=== PATIENT | male | born 1955 | race African-American/Black ===

== ENCOUNTER 2016-05-03 15:59 | Inpatient (IN) ==
[2016-05-03] MEDS ORDERED: *HR* OxyCODONE Immed Rel 5 MG TABLET PO PRN (18:04)
[2016-05-03] MEDS ORDERED: *HR* Morphine 2 MG/ML SYRINGE IVP PRN (18:04)
[2016-05-03] MEDS ORDERED: Ondansetron 4 MG/2 ML VIAL IVP PRN (18:04)
[2016-05-03 18:50] LABS: INR 1.1; Prothrombin Time 12.1 Seconds (9.4-12.1)
[2016-05-03 18:52] LABS: BUN/Creatinine Ratio 13 (6-26); Blood Urea Nitrogen 13 mg/dL (8-26); Calcium 9.3 mg/dL (8.6-10.8); Carbon Dioxide 25 mEq/L (19-29); Chloride 110 mEq/L (98-109); Glucose 87 mg/dL (70-99); Osmolality,Calculated 295 (280-300); Potassium 4.2 mEq/L (3.5-4.5); Sodium 143 mEq/L (136-145); eGFR For African Americans > 60 (> 60); eGFR For Non-African Americans > 60 (> 60)
[2016-05-03 18:55] LABS: Basophils % 0.3 %; Eosinophils # 0.3 K/mcL (0.0-0.6); Hematocrit 35.8 % (37.5-50.1); Hemoglobin 12.1 g/dL (12.9-16.9); Immature Granulocytes % 0.1 % (0-4); Lymphocytes # 1.8 K/mcL (0.6-4.6); Lymphocytes % 26.5 %; Mean Corpuscular HGB Conc 33.8 g/dL (31.6-35.5); Mean Corpuscular Hemoglobin 28.5 pg (28.0-33.3); Mean Corpuscular Volume 84.4 fL (83.0-100.0); Mean Platelet Volume 10.9 fL (9.4-12.4); Monocytes # 0.5 K/mcL (0.0-1.3); Monocytes % 7.2 %; Neutrophils # 4.2 K/mcL (1.6-8.9); Platelet Count 236 K/mcL (140-400); Red Blood Count 4.24 M/mcL (4.19-5.50); Red Cell Distribution Width 14.2 % (11.5-14.5); Segmented Neutrophils % 61.9 %
[2016-05-03] MEDS: *HR* OxyCODONE Immed Rel 5 MG TABLET PO PRN (21:26)
--- NOTE | 2016-05-03 21:38 | Internal Medicine Consult Note ---
Date of Encounter: 05/03/16 Time of Encounter: 22:30 - Assessment and Plan (1) Bronchitis Current Visit: Yes Status: Acute Assessment and plan: Will treat with prednisone, levofloxacin, duonebs. He is at risk of post op complications and pneumonia. Hospitalist team to follow in the post operative period. (2) Seizure disorder Current Visit: Yes Status: Chronic Assessment and plan: Continue with Keppra. Seizure precautions. (3) Abnormal involuntary movements Current Visit: Yes Status: Chronic Assessment and plan: Pt may benifit from Neurology consultation as inpatient or out patient. (4) Nicotine dependence Current Visit: Yes Status: Chronic Assessment and plan: Will start nicotine patch. Start incentive spirometer in the pre-operative period Qualifiers: Qualified Code(s): F17.219 - Nicotine dependence, cigarettes, with unspecified nicotine-induced disorders (5) Cervical myelopathy Current Visit: Yes Status: Chronic Assessment and plan: Management per orthopedic team Internal Medicine - CN: HPI - Data of Consult Patient: new to practice Consult date: 05/03/16 Requesting Physician: Robert Rodríguez Jr MD - Consult Narrative Reason for consult: Presurgical evaluation History of present illness: Mr. Perkins is a 60 year old male With past medical history significant for seizure disorder, severe C3-C4 spinal canal stenosis with focal myelomalacia and cervical spinal canal stenosis. He is expected to go for surgery on . Hospitalist team is consulted for presurgical evaluation. Patient denies chest pain at rest or on exertion. He denies a significant shortness of breath. He has cough with some elevation expectoration. No fever or chills. He denies abdominal pain, dysuria, hematuria, bowel problems. He reports involuntary jerking movements, and movements while sleeping which caused him injuries. His activities are limited due to these involuntary movements. He can not drive the car or go out due to these movements. He has pain in the right upper extremity for long time, and now has pain in the left upper extremity due to biceps injury. Review of systems: 10 point review of systems done and is negative except for the above mentioned. Family Hx: reviewed and not pertinent to current admission Past Med Surg Social Fam HX - Past Medical History Medical history: no medical history, seizures Psychiatric history: anxiety, depression - Social History Smoking Status: Current every day smoker Smokeless Tobacco Status: No Alcohol use: none Drug use: none Internal Medicine - CN: Meds LevETIRAcetam [Levetiracetam] 500 mg PO BID 05/03/16 [History] Allergies No Known Allergies Allergy (Verified 05/03/16 17:54) Internal Medicine - CN: Exam - Constitutional Vitals: Temp Pulse Resp BP Pulse Ox 98.0 F 56 17 131/71 98 05/03/16 20:00 05/03/16 20:00 05/03/16 20:00 05/03/16 20:00 05/03/16 20:00 Exam: General: Not in acute distress at the time of my evaluation HEENT: Oral mucosa is moist. No conjunctival palor or scleral icterus Neck: No obvious neck swellings Lungs: Clear to auscultation Cardiac: Regular rate and rhythm. No significant murmurs Abdomen: Soft, non tender. Bowel sounds present Neurological: Alert and oriented. No gross localizing motor deficits Psych: Not aggressive or agitated Extremities: no significant leg edema Skin: No generalized rash Internal Medicine - CN: Reslt - Labs CBC & Chem 7: 05/03/16 18:23 05/03/16 18:23 Labs: Short CBC 05/03/16 Range/Units 18:23 WBC 6.8 (4.3-11.1) K/mcL Hgb 12.1 L (12.9-16.9) g/dL Hct 35.8 L (37.5-50.1) % Plt Count 236 (140-400) K/mcL Neutrophils # 4.2 (1.6-8.9) K/mcL BMP 05/03/16 18:23 Sodium 143 Potassium 4.2 Chloride 110 H Carbon Dioxide 25 BUN 13 Creatinine 1.03 Glucose 87 Calcium 9.3 - ABG Interpretation ABG results: PT/INR, D-dimer PT 12.1 Seconds (9.4-12.1) 05/03/16 18:23 - EKG Data -: EKG Interpreted by Myself EKG shows normal: sinus rhythm - Impressions Impressions Cervical Spine X-Ray 05/03/16 18:04 IMPRESSION: Degenerative disc and joint disease mid and lower cervical spine. No acute process seen. D/ / 05/03/2016 19:48:35 Stevie Vasquez MD / mary Interpreting Provider: Stevie Vasquez MD Chest X-Ray 05/03/16 18:04 IMPRESSION: No acute cardiopulmonary disease. D/ / 05/03/2016 19:13:20 Stevie Vasquez MD / mary Interpreting Provider: Stevie Vasquez MD Consult Discharge Plan - Plan [facility] Care Provider[facility] -
[2016-05-03] MEDS ORDERED: predniSONE 20 MG TABLET PO SCH (22:45)
[2016-05-03] MEDS: levETIRAcetam 250 MG TABLET PO SCH (23:36)
[2016-05-03] MEDS: levoFLOXacin 500 MG TABLET PO SCH (23:36)
[2016-05-04 00:22] LABS: Bilirubin,Urine Negative (Negative); Blood,Urine Negative (Negative); Clarity,Urine Clear (Clear); Color,Urine Yellow (Yellow); Glucose,Urine (UA) Normal (Normal); Ketones,Urine Negative (Negative); Leukocyte Esterase,Urine Negative (Negative); Nitrite,Urine Negative (Negative); Protein,Urine Trace mg/dL (Neg-Trace); Specific Gravity,Urine 1.016 (1.010-1.025); Urobilinogen,Urine Normal (Normal)
[2016-05-04 00:29] LABS: Bacteria,Urine None Seen per hpf (None-Few); Hyaline Casts,Urine None Seen per lpf (None-Few); RBC,Urine 0-3 per hpf (0-3); Squamous Epithelial Cell,Urine Moderate per lpf (None-Few); WBC,Urine 0-3 per hpf (0-3)
[2016-05-04] MEDS: Ipratropium/Albuterol Neb 3 ML IH SCH ×5 (05:20→21:46)
--- NOTE | 2016-05-04 07:39 | Spine - History & Physical Rep ---
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 On examination he has a somewhat spastic gait pattern which is mildly unstable we will. He has a positive Sivan sign. He has a positive inverted radial reflex. He has 3 beats of clonus. He has decreased sensation to light touch in the bilateral distal upper extremities. He fires upper and lower extremity motor groups with good strength. Lungs are clear, cardiovascular regular rate and rhythm, abdominal soft and nontender. MRI of the cervical spine dated 03/25/2016 reveals severe stenosis in part secondary to a large posterior disc extrusion that flattens the spinal cord and results in myelomalacia at C3-4. The stenosis extends posterior to the C4 vertebral body. There is moderate stenosis at the C4-5 level. Impression: 1) Cervical cord compression 2) Cervical myelopathy 3) Cervical cord myelomalacia 4) Cervical stenosis Plan: We will admit for definitive management in the form of a cervical decompression and fusion due to his worsening neurologic and functional status.. This will be in the form of a corpectomy C4, cervical fusion C3-C5. We will obtain a hospitalist consult for medical optimization and clearance measures. Patient is amenable to the plan and would like to proceed. (2) Cervical spinal cord compression Current visit: Yes Status: Chronic History of Present Illness Chief complaint: Difficulty walking, numbness in hands, clumsiness HPI: Mr. Perkins is a 60 year old male who complains of a several week history of worsening paresthesias in the upper extremities, gait instability, difficulty with fine motor movements of the upper extremities and dexterity, and radicular symptoms in the upper extremities. He apparently was supposed to have cervical decompression and fusion surgery in [place] a year ago but had delays in preoperative radiation and follow-up. He notes a significant decline in function over the past several months. Recent MRI of the cervical spine field spinal cord compression. Due to his declining neurological status he is admitted for definitive management. Past Med Surg Social Fam HX - Past Medical History Medical history: no medical history, seizures Psychiatric history: anxiety, depression - Social History Smoking Status: Current every day smoker Smokeless Tobacco Status: No Alcohol use: none Drug use: none Medications and Allergies LevETIRAcetam [Levetiracetam] 500 mg PO BID 05/03/16 [History] Allergies No Known Allergies Allergy (Verified 05/03/16 17:54) Results - Labs Result Diagrams: 05/03/16 18:23 05/03/16 18:23 Labs: Abnormal lab results Hgb 12.1 g/dL (12.9-16.9) L 05/03/16 18:23 Hct 35.8 % (37.5-50.1) L 05/03/16 18:23 Chloride 110 mEq/L (98-109) H 05/03/16 18:23 Ur Squamous Epith Cells Moderate per lpf (None-Few) H 05/03/16 00:08 H & H 05/03/16 Range/Units 18:23 Hgb 12.1 L (12.9-16.9) g/dL Hct 35.8 L (37.5-50.1) % All other labs normal. - VTE Documentation of Mechanical Device: Intermittent pneumatic compression device
[2016-05-04] MEDS ORDERED: Nicotine 14 MG PATCH.TD24 TD SCH (09:00)
[2016-05-04] MEDS: levETIRAcetam 250 MG TABLET PO SCH ×2 (09:46→21:29)
[2016-05-04] MEDS ORDERED: predniSONE 20 MG TABLET PO SCH (09:58)
--- NOTE | 2016-05-04 09:59 | Event Note ---
Date of Encounter: 05/04/16 Time of Encounter: 09:52 patient seen as f/u consult for pre op risk assesment. With past medical history significant for seizure disorder, severe C3-C4 spinal canal stenosis with focal myelomalacia and cervical spinal canal stenosis. He is expected to go for surgery on 05/05/16. this morning, he denies any complains, reports that his cough is better, CXR was done that shows no signs of pneumonia. he was started on levoflox, prednisone for acute bronchitis clinically better, can decrease steroids to 10 mg daily and stop after 5 days. can continue levofloxacin for 4 more days and be stopped. no fever or leucocytosis. hemodynamically stable. will order EKG For pre -op eval. early ambulation as able post sx, incentive spirometry and DVT rophylaxis. patient is low C-P risk for the proposed procedure.
[2016-05-04] MEDS: *HR* OxyCODONE Immed Rel 5 MG TABLET PO PRN ×2 (11:27→16:32)
--- NOTE | 2016-05-04 16:28 | Electrocardiograph Report ---
[address] [address] Test Date: 2016-05-03 Pat Name: Bradley Perkins Department: 114 Room: [facility] Gender: M Bushler: : 1955 Requested By: Robert Rodríguez Order Number: [id number] Reading MD: Mayo Phipps Measurements Intervals [place] Rate: 59 P: 47 OR: 159 QRS: 28 QRSD: 101 T: 7 QT: 393 QTc: 392 Interpretive Statements SINUS BRADYCARDIA ST ELEVATION, PROBABLY EARLY REPOLARIZATION Electronically Signed On 05-04-2016 16:27:14 EST by Mayo Phipps
--- NOTE | 2016-05-04 17:22 | Electrocardiograph Report ---
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
--- NOTE | 2016-05-04 20:34 | Anesthesia Evaluation PreOp ---
Date of Encounter: 05/04/16 Time of Encounter: 20:31 - Past History Planned Operation: C3-5 fusion, C4 corpectomy Cardiac History: Denies any Significant Hx Pulmonary History: Smoker (<1ppd x 40yrs), Other (Bronchitis noted this admission currently tx w/Prednisone, Levaquin, DuoNebs) FACETOR History: Seizures (maintained on Kepra. POORLY CONTROLLED - reports 3-4 seizures/week. [facility] - but is unclear on follow-up. Pt reports witnessed jerking/clonic movments during his sleep by his sleeping partner. OR if alone, awakens very sore and bruised.), Other (Cervical Myelomalacia w/ unstable, spastic gait, 3beat clonus and weakness/decreased sensation to light touch (numbness) B-distal UE (hands). Anxiety/Depression) Other Medical History: Denies Any Significant HX Anesthesia History: No Prior Anesthetic Complications, Past Anesthesia (Hand surgery, Knee scope) Alcohol Use: none Drug use: none Medications and Allergies LevETIRAcetam [Levetiracetam] 500 mg PO BID 05/03/16 [History] Allergies No Known Allergies Allergy (Verified 05/03/16 17:54) - Meds/Allergy Pre-op Review Medications Reviewed: Yes Allergies Reviewed: Yes Beta Blockers on Current Med List: No Anesthesia Results - Labs 05/03/16 18:23 05/03/16 18:23 Laboratory Tests 05/03/16 05/03/16 18:23 18:23 PT 12.1 INR 1.1 APTT 36.0 Est GFR (Non-Af Amer) > 60 Laboratory Results Impressions Cervical Spine X-Ray 05/03/16 18:04 IMPRESSION: Degenerative disc and joint disease mid and lower cervical spine. No acute process seen. D/ / 05/03/2016 19:48:35 Stevie Vasquez MD / mary Interpreting Provider: Stevie Vasquez MD Chest X-Ray 05/03/16 18:04 IMPRESSION: No acute cardiopulmonary disease. D/ / 05/03/2016 19:13:20 Stevie Vasquez MD / mary Interpreting Provider: Stevie Vasquez MD - Imaging EKG: image reviewed ([05/03/16] 61bpm SR, ST elevation likely early repolarization) Anesthesia Exam Vital Signs Temp Pulse Resp BP Pulse Ox 05/04/16 16:30 62 05/04/16 14:49 99.1 F 57 18 130/71 98 05/04/16 11:15 98.3 F 61 18 124/72 97 05/04/16 10:30 20 97 05/04/16 06:52 98.9 F 74 18 122/65 99 05/04/16 03:58 98.1 F 60 16 133/68 98 05/03/16 23:59 98.4 F 60 15 135/66 98 Intake and Output 05/04/16 05/04/16 05/04/16 07:59 15:59 23:59 Intake Total 240 / 240 Balance 240 / 240 Intake: Oral 240 / 240 Other: Meal Lunch Percent of Meal Consumed 50% # Voids 1 1 Height: 5'10" Weight: 160# BMI = 23 - HEENT Pupil (Motor): Pupils equal, EOMI Mallampati: II Teeth: Missing, Poor dentition Oral Opening: Greater than 3 - FACETOR LOC: Oriented FACETOR Motor: Normal Face, 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 Katharina Martin MD
[2016-05-04] MEDS: levoFLOXacin 500 MG TABLET PO SCH (21:28)
[2016-05-04] MEDS ORDERED: *HR* Promethazine 25 MG/ML VIAL IVP PRN (21:48)
[2016-05-05] MEDS: Ipratropium/Albuterol Neb 3 ML IH SCH ×4 (04:38→22:41)
[2016-05-05] MEDS ORDERED: *HR* Phenylephrine 10 MG/ML VIAL ONE (06:45)
[2016-05-05] MEDS ORDERED: Dexamethasone 4 MG/ML VIAL ONE (06:45)
[2016-05-05] MEDS ORDERED: *HR* Succinylcholine 200 MG/10 ML VIAL IVP ONE (06:45)
[2016-05-05] MEDS ORDERED: Ondansetron 4 MG/2 ML VIAL ONE ×2 (06:45→11:31)
[2016-05-05] MEDS ORDERED: Lidocaine -MPF 2% 2 ML VIAL ONE ×2 (06:45→07:15)
[2016-05-05] MEDS ORDERED: Lidocaine -MPF 4% 5 ML AMPUL ONE (06:45)
[2016-05-05] MEDS ORDERED: *HR* Rocuronium Bromide 50 MG/5 ML VIAL ONE (06:45)
[2016-05-05] MEDS ORDERED: *HR* Remifentanil 1 MG VIAL IVP ONE ×3 (06:46→10:38)
[2016-05-05] MEDS ORDERED: *HR* FentaNYL (PF) 100 MCG/2 ML VIAL ONE (06:46)
[2016-05-05] MEDS ORDERED: *HR* Midazolam HCl 2 MG/2 ML VIAL ONE ×2 (06:47→11:56)
[2016-05-05] MEDS ORDERED: *HR* Propofol 200 MG/20 ML VIAL IVP ONE (06:47)
[2016-05-05] MEDS ORDERED: ceFAZolin 2,000 MG in D5% in Water (Mini-Bag+) 100 ML IVPB ONE (07:00)
[2016-05-05] MEDS ORDERED: Heparin 1,000 UNITS/500 mL NS 500 ML ONE (07:14)
[2016-05-05] MEDS ORDERED: *HR* Midazolam HCl 5 MG/5 ML VIAL IVP ONE (08:00)
[2016-05-05] MEDS ORDERED: *HR* Midazolam HCl 2 MG/2 ML VIAL IVP PRN (09:09)
[2016-05-05] MEDS ORDERED: *HR* HYDROmorphone 2 MG/ML SYRINGE ONE ×2 (09:16→11:58)
--- NOTE | 2016-05-05 11:42 | Orthopedic Operative Note ---
Date of procedure: 05/05/16 Pre-op diagnosis: Spinal cord compression, cervical myelopathy, myelomalacia Post-op diagnosis: same Operation/Findings: Corpectomy C4, Anterior cervical fusion C3-C5:The patient was brought to the operating room and placed supine on the operating room table. Successful general endotracheal anesthesia intubation was performed. Neurophysiologic monitoring personnel placed leads on the upper and lower extremities as well as the cranium for EMG monitoring purposes. Appropriate baseline potentials were noted by the neurophysiologic monitoring staff. Vazquez catheter was placed prior to positioning. Compression boots and packings were placed for deep vein thrombosis prophylaxis. Padding was also placed all bony prominences including the ulnar nerve near the medial epicondyles of the elbows were appropriately padded. Mild traction was placed on the bilateral shoulders and taped into place. Preoperative antibiotics were administered. The area from the mandible bilaterally to the upper thoraces was prepped and draped in the usual sterile fashion. An oblique incision was made at the level of the cricoid cartilage which is approximately 4cm in length and extended from the midline of the cervical spine laterally towards the sternocleidomastoid muscle on the left. The incision was approximately 1 cm medial and parallel to the left sternocleidomastoid muscle. We then performed standard medial approach to the carotid sheath. Sponges were used to tease the fascial medial to the sternocleidomastoid muscle while carefully controlling and palpating the carotid artery. Using careful dissection we were able to get to the level of the anterior vertebral bodies and longus coli muscles. The spinal needle was placed at the appropriate C4-5 level, and intraoperative radiograph was obtained which was a cervical spine lateral radiograph. The needle and radiograph confirmed we were at the correct operative level. We further exposed this C4-5 level by using Bovie cautery under the medial edge of the longus colli muscles to allow them to be retracted approximately 2 mm laterally on each side. An 11 blade was used to perform anterior discectomy at the appropriate C4-5 level after an initial annulotomy of the anterior longitudinal ligament and annulus was performed. Further disc material was removed with pituitary Rongeurs. Subsequently, Synthes pins were placed at the C4 and C5 vertebral bodies respectively to provide distraction. We then used a Trimline cervical retractor which was placed in both medial and lateral as well as inferior superior direction to allow full visualization of the appropriate C4-5 disc and C4 and C5 vertebral bodies. The Leica microscope was brought to the field and the remainder of the procedure was performed under the guidance of this microscope. Using pituitary rongeurs and small curettes, various micro- instruments, a full discectomy was performed at the appropriate C4-5 level. The posterior longitudinal ligament was encountered and appeared partially calcified. A portion of this ligament was removed. After complete and thorough discectomy and removal of spondylitic material was performed the endplates of the C4 and C5 vertebral bodies were prepared with a bur until allow bleeding of cancellous bone. We then turned our attention to the C3-4 level where a similar series of procedures was performed including discectomy, removal of spondylitic material, end plate preparation. This point, the C4-5 and C3-4 disks spaces had been fully decompressed the posterior longitudinal ligament. We then removed intervening C4 vertebral body using Rongeurs. This bone was saved for later use. We decompressed posterior to the C4 vertebral body and remove part of the posterior longitudinal ligament. At this stage the area inferior to the C3 vertebral body and superior to be C5 vertebral body was fully decompressed. This area was measured with calipers. An appropriate sized expandable cage ( [employer]) was selected. With the aid of fluoroscopy, the cage was placed in the space between the C3 and C5 vertebral bodies. We packed the expandable cage with autograft bone as well as cancellus chips and demineralized bone matrix. A cervical plate was then placed on the anterior aspect of the C3, C4, and C5 vertebral bodies. The plate was placed in the midline position after drilling four 13 mm self tapping screws and inserting them. They were locked in place using standard Venture plate maneuvers. At this point a lateral radiograph of the cervical spine was obtained and showed satisfactory position of the expandable cage and plate. The wound was copiously irrigated and bleeders encountered were cauterized using Bovie cautery. Platysma was closed with interrupted 2-0 Vicryl sutures. Running 3-0 Monocryl suture was used for skin closure. Sterile dressing was placed over the neck wound. A cervical collar was placed. The patient was transferred to a hospital bed and extubated. The patient was noted to be fully motor and sensory intact in the recovery room at the end of the procedure. The medications. All sponge instrument and needle counts were correct at the end of the procedure. Anesthesia: GETA Surgeon: Robert Rodríguez Jr Estimated blood loss (cc): 75 Condition: stable Disposition: PACU
[2016-05-05] MEDS ORDERED: *HR* HYDROmorphone (PF) 1 MG/ML SYRINGE IVP PRN (11:57)
[2016-05-05] MEDS ORDERED: *HR* Promethazine 25 MG/ML VIAL IVP PRN ×2 (11:57→13:22)
--- NOTE | 2016-05-05 12:49 | Anesthesia Evaluation Post Op ---
Date of Encounter: 05/05/16 Time of Encounter: 12:48 - Vital Signs Vital Signs: Last Vital Signs Temp 97.6 F 05/05/16 12:30 Pulse 69 05/05/16 12:40 Resp 14 05/05/16 12:40 BP 153/88 05/05/16 12:40 Pulse Ox 95 05/05/16 12:40 - Lungs Lungs: Clear Ascult./Percussion - Airway Airway: Non-obstructed - Cardiovascular Regular Rate - Mental Status Mental Status: Alert & Oriented, Answers Appropriately - Pain Pain Scale: 5 - Nausea Vomiting Nausea Vomiting: Not Present - Hydration Hydration: NPO - Discharge PostOp Status: Transfer Patient to floor
[2016-05-05] MEDS ORDERED: *HR* Morphine 2 MG/ML SYRINGE IVP PRN (13:22)
[2016-05-05] MEDS: *HR* OxyCODONE Immed Rel 5 MG TABLET PO PRN (19:15)
[2016-05-05] MEDS ORDERED: predniSONE 20 MG TABLET PO SCH (21:00)
[2016-05-05] MEDS ORDERED: levoFLOXacin 500 MG TABLET PO SCH (21:00)
[2016-05-05] MEDS: levETIRAcetam 250 MG TABLET PO SCH (22:11)
[2016-05-06] MEDS: *HR* OxyCODONE Immed Rel 5 MG TABLET PO PRN ×2 (02:29→08:28)
[2016-05-06] MEDS: Ipratropium/Albuterol Neb 3 ML IH SCH ×2 (04:48→10:52)
[2016-05-06] MEDS: levETIRAcetam 250 MG TABLET PO SCH (08:25)
[2016-05-06 11:20] VITALS: BP 123/73
--- NOTE | 2016-05-06 12:41 | Discharge Summary ---
Date of Encounter: 05/06/16 Time of Encounter: 12:39 - Discharge Diagnosis (1) Cervical cord myelomalacia Priority: Secondary Status: Chronic (2) Cervical spinal cord compression Priority: Primary Status: Chronic - Discharge Medications Prescriptions: OxyCODONE Immed Rel [Roxicodone 5 MG] 5 mg PO Q4HR PRN #60 tablet PRN Reason: Pain 4-6 Home Medications: LevETIRAcetam [Levetiracetam] 500 mg PO BID 05/03/16 [History] OxyCODONE Immed Rel [Roxicodone 5 MG] 5 mg PO Q4HR PRN #60 tablet 05/06/16 [Rx] Allergies/Adverse Reactions: Allergies No Known Allergies Allergy (Verified 05/03/16 17:54) - Impressions ITS Impressions Cervical Spine X-Ray 05/03/16 18:04 IMPRESSION: Degenerative disc and joint disease mid and lower cervical spine. No acute process seen. D/ / 05/03/2016 19:48:35 Stevie Vasquez MD / mary Interpreting Provider: Stevie Vasquez MD Chest X-Ray 05/03/16 18:04 IMPRESSION: No acute cardiopulmonary disease. D/ / 05/03/2016 19:13:20 Stevie Vasquez MD / mary Interpreting Provider: Stevie Vasquez MD Fluoroscopy 05/05/16 08:35 IMPRESSION: Intraprocedural fluoroscopic spot images as above. See separate procedure report for more information. D/ / 05/05/2016 11:41:03 Obed Villar MD / [facility] Interpreting Provider: Obed Villar MD Cervical Spine X-Ray 05/06/16 08:56 IMPRESSION: 1. Postoperative changes of the cervical spine at C3 through C5. Slight spaces identified between the plate and anterior aspect of the C5 vertebral body, measuring 2 mm. Status post C4 corpectomy. 2. Significant prevertebral soft tissue swelling and subcutaneous gas, normal in the postoperative state. 3. Moderate to severe degenerative disc disease at C5-6. D/ / Carito Daniels MD / Carito Daniels MD Interpreting Provider: Carito Daniels MD Date of admission: 05/05/16 07:57 Primary care physician: PCP CT - Patient Status Disposition: Home, Self-Care Condition: Good Functional capacity at discharge: independent ambulation Overall status at discharge: patient is progressing back to baseline - Discharge Instructions Follow Up With: Robert Rodríguez Jr, MD [Partnered Physician] - 05/07/16 10:[address],PCP [Primary Care Provider] - - Diet and Activity Activity: as per physical therapy Diet: advance to your usual diet - Hospital Course Hospital course: Mr. Perkins is a 60 year old male The patient had an uneventful postoperative course. Progressed from intravenous analgesic needs to oral analgesic needs only. Remained neurovascularly intact and mobilized satisfactorily. All intraoperative and/or postoperative radiographic studies were satisfactory. Patient is discharged with plan for rehabilitation and follow-up in 2 weeks post discharge on analgesic medication and patient's home medications. - Time Spent with Patient Total time spent providing and/or coordinating discharge services: - VTE Documentation of Mechanical Device: Intermittent pneumatic compression device
== END 2016-05-06 14:50 | disposition home or self-care (01) | DRG 30 ==
LOC: 3NENU
PROVIDERS: ADMIT Orthopaedic Surgery Orthopaedic Surgery of the Spine; ATTEND Orthopaedic Surgery Orthopaedic Surgery of the Spine
PROC: SPICORP (2016-05-05 07:45)